=== PATIENT | female | born 1960 | race Caucasian/White ===

== ENCOUNTER 2018-05-28 22:47 | Observation (INO) | payer MEDICAID ==
[~2018-05-28] VITALS: Ht 162.6 cm; Wt 68.0 kg
[2018-05-28 23:26] LABS: Basophils # (auto) 0.1 uL; Basophils % (auto) 0.8 % (0.0-2.0); Eosinophils # (auto) 0.1 uL; Hematocrit 45.1 % (36.0-46.0); Hemoglobin 15.1 g/dL (12.2-16.2); Lymphocytes # (auto) 2.3 uL; Lymphocytes % (auto) 30.6 % (10.0-50.0); Mean Corpuscular Hgb Conc. 33.5 g/dL (32.0-36.0); Mean Corpuscular Volume 92.5 fL (80.0-100.0); Monocytes # (auto) 0.8 uL; Monocytes % (auto) 10.9 % (0.0-12.0); Neutrophils # (auto) 4.1 uL; Neutrophils % (auto) 55.7 % (37.0-80.0); Platelet Count (auto) 257 10^3/uL (140-450); Red Blood Cells 4.87 10^6/uL (4.0-5.20); Red Cell Distribution Width 14.8 % (11.8-14.3); White Blood Cell 7.4 10^3/uL (4.4-10.8)
[2018-05-28 23:44] LABS: Alanine Aminotransferase 19 U/L (13-56); Albumin 3.7 g/dL (3.4-5.0); Anion Gap 14 (5-15); Aspartate Aminotransferase 17 U/L (15-37); BUN/Creatinine Ratio 10.8; Blood Urea Nitrogen 8 mg/dL (7-18); Calcium 8.4 mg/dL (8.5-10.1); Carbon Dioxide 20 mmol/L (21-32); Chloride 105 mmol/L (98-107); GFR African American 103 mL/min; GFR Non-African American 85 mL/min; Glucose 83 mg/dL (74-106); Potassium 3.8 mmol/L (3.5-5.1); Sodium 139 mmol/L (136-145)
[2018-05-28 23:48] LABS: Alkaline Phosphatase 117 U/L (45-117); Bilirubin, Total 0.9 mg/dL (0.2-1.0); Total Protein 8.5 g/dL (6.4-8.2)
[2018-05-29 01:23] LABS: Amylase 27 U/L (25-115); Lipase 175 U/L (73-393)
[2018-05-29] MEDS ORDERED: SODIUM CHLORIDE 0.9% 1,000 ML IV ONE (04:30)
[2018-05-29 08:39] LABS: Urine Bacteria NONE SEEN /hpf (None Seen); Urine Blood TRACE /uL (Negative); Urine Hyaline Cast FEW /lpf (0 - 2); Urine Mucus FEW (None Seen); Urine Specific Gravity 1.023 (1.001-1.035); Urine WBC 7 /hpf (0 - 5)
[2018-05-29 08:53] LABS: Amphetamine Screen, Urine NEGATIVE (NEGATIVE); Barbiturate Scree,Urine NEGATIVE (NEGATIVE); Benzodiazephine Screen, Urine NEGATIVE (NEGATIVE); Cannabinoid Screen, Urine NEGATIVE (NEGATIVE); Cocaine Screen, Urine NEGATIVE (NEGATIVE); Opiate Scree,Urine NEGATIVE (NEGATIVE); Phencyclidine Screen, Urine NEGATIVE (NEGATIVE)
[2018-05-29 12:00] VITALS: BP 159/63
[2018-05-29] MEDS ORDERED: cefTRIAXone 1GM/10ml IVPUSH 10 ML IV ONE (12:30)
[2018-05-29] MEDS ORDERED: chlordiazePOXIDE HCL 25 MG CAP PO ONE (13:15)
== END 2018-05-29 14:07 | disposition home or self-care (01) | DRG 52 ==
LOC: EDBD 22:47 → ER 22:59 → OVERFLOW 23:00 → ER 05-29 14:07
PROVIDERS: ADMIT Emergency Medicine; ATTEND Emergency Medicine
DX: G92 Toxic encephalopathy (principal); I10 Essential (primary) hypertension; F10.20 Alcohol dependence, uncomplicated; F41.9 Anxiety disorder, unspecified; Z59.0 Homelessness
CPT/HCPCS: 36415; 71046; 80053; 80307; 80320; 81001; 82150; 83690; 83735; 83880; 84484; 85025; 93005; 96361; 96374; 99285; G0378; J0696

== ENCOUNTER 2018-06-13 18:52 | Emergency (ER) | payer MEDICAID ==
[~2018-06-13] VITALS: Ht 167.6 cm; Wt 74.8 kg
[2018-06-13] MEDS ORDERED: SODIUM CHLORIDE 0.9% 1,000 ML IV ONE (21:23)
[2018-06-13] MEDS ORDERED: LORazepam 2MG/ML-1ML VIAL IV ONE (21:30)
[2018-06-13 21:45] LABS: Basophils # (auto) 0 uL; Basophils % (auto) 0.8 % (0.0-2.0); Eosinophils # (auto) 0 uL; Eosinophils % (auto) 0.8 % (0.0-7.0); Hematocrit 40.7 % (36.0-46.0); Hemoglobin 13.7 g/dL (12.2-16.2); Lymphocytes # (auto) 2.1 uL; Lymphocytes % (auto) 38.4 % (10.0-50.0); Mean Corpuscular Hemoglobin 31.8 pg (28.0-32.0); Mean Corpuscular Hgb Conc. 33.8 g/dL (32.0-36.0); Mean Corpuscular Volume 94.2 fL (80.0-100.0); Monocytes # (auto) 0.7 uL; Monocytes % (auto) 12.7 % (0.0-12.0); Neutrophils # (auto) 2.6 uL; Neutrophils % (auto) 47.3 % (37.0-80.0); Platelet Count (auto) 309 10^3/uL (140-450); Red Blood Cells 4.32 10^6/uL (4.0-5.20); Red Cell Distribution Width 15.7 % (11.8-14.3); White Blood Cell 5.5 10^3/uL (4.4-10.8)
[2018-06-13 22:31] LABS: BUN/Creatinine Ratio 6.5; Bilirubin, Total 0.5 mg/dL (0.2-1.0); Calcium 8.5 mg/dL (8.5-10.1); Potassium 3.4 mmol/L (3.5-5.1); Total Protein 8.2 g/dL (6.4-8.2)
[2018-06-14 05:42] VITALS: BP 157/84
== END 2018-06-14 05:29 | disposition home or self-care (01) ==
LOC: EDBD 18:52 → ER 19:09
DX: E86.0 Dehydration (principal); F10.120 Alcohol abuse with intoxication, uncomplicated; F41.9 Anxiety disorder, unspecified; I10 Essential (primary) hypertension; F17.210 Nicotine dependence, cigarettes, uncomplicated
CPT/HCPCS: 36415; 80053; 80320; 85025; 94761; 96361; 96374; 99284; J2060; J7030

== ENCOUNTER 2019-04-24 21:05 | Emergency (ER) | payer MEDICAID ==
[~2019-04-24] VITALS: Ht 167.6 cm; Wt 68.0 kg
[2019-04-24 22:03] LABS: Basophils # (auto) 0 uL; Basophils % (auto) 0.6 % (0.0-2.0); Eosinophils # (auto) 0 uL; Eosinophils % (auto) 0.7 % (0.0-7.0); Hematocrit 44.5 % (36.0-46.0); Lymphocytes # (auto) 1.2 uL; Lymphocytes % (auto) 18.4 % (10.0-50.0); Mean Corpuscular Hgb Conc. 33.6 g/dL (32.0-36.0); Mean Corpuscular Volume 98.2 fL (80.0-100.0); Monocytes # (auto) 0.7 uL; Neutrophils # (auto) 4.5 uL; Neutrophils % (auto) 69.3 % (37.0-80.0); Platelet Count (auto) 189 10^3/uL (140-450); Red Blood Cells 4.53 10^6/uL (4.0-5.20); White Blood Cell 6.5 10^3/uL (4.4-10.8)
[2019-04-24 22:20] LABS: Alanine Aminotransferase 87 U/L (13-56); Albumin 3.9 g/dL (3.4-5.0); Anion Gap 15 (5-15); Aspartate Aminotransferase 62 U/L (15-37); Blood Urea Nitrogen 12 mg/dL (7-18); Calcium 9.3 mg/dL (8.5-10.1); Carbon Dioxide 24 mmol/L (21-32); Chloride 96 mmol/L (98-107); GFR African American 101 mL/min; GFR Non-African American 84 mL/min; Glucose 85 mg/dL (74-106); Potassium 4.2 mmol/L (3.5-5.1); Sodium 135 mmol/L (136-145)
[2019-04-24 22:23] LABS: Alkaline Phosphatase 97 U/L (45-117); Bilirubin, Total 1.8 mg/dL (0.2-1.0); Total Protein 8.5 g/dL (6.4-8.2)
[2019-04-25] MEDS ORDERED: SODIUM CHLORIDE 0.9% 1,000 ML IV ONE (01:30)
[2019-04-25] MEDS ORDERED: THIAMINE 100mg/ml INJ (200mg/2ml VIAL) IV ONE (01:30)
[2019-04-25] MEDS ORDERED: LORazepam 2MG/ML-1ML VIAL IV ONE (01:30)
[2019-04-25] MEDS ORDERED: ASPirin-EC 325mg tab PO ONE (01:30)
[2019-04-25 05:19] VITALS: BP 111/58
== END 2019-04-25 06:05 | disposition home or self-care (01) ==
LOC: EDBD 21:05 → ER 21:12
DX: R07.9 Chest pain, unspecified (principal); I10 Essential (primary) hypertension; F17.210 Nicotine dependence, cigarettes, uncomplicated
CPT/HCPCS: 36415; 71046; 80053; 83880; 84443; 84484; 85025; 93005; 96374; 96375; 99284; J2060; J3411; J7030

== ENCOUNTER 2021-02-18 20:08 | Emergency (ER) | payer MEDICAID ==
[~2021-02-18] VITALS: Ht 167.6 cm; Wt 68.0 kg
[2021-02-18] MEDS ORDERED: FOLIC ACID 1 MG, MULTIPLE VITAMIN 10 ML, MAGNESIUM SULF SDV 50% 8 MEQ, THIAMINE INJ 100... INJ STA ×5 (20:33)
[2021-02-18] MEDS ORDERED: SODIUM CHLORIDE 0.9% 1,000 ML IV ONE (20:45)
[2021-02-18] MEDS ORDERED: SODIUM CHLORIDE 0.9% 2,000 ML IV ONE (21:00)
[2021-02-18 22:15] LABS: Basophils # (auto) 0.1 10 ^3/uL (0-0.2); Eosinophils # (auto) 0.2 10 ^3/uL (0-0.8); Hemoglobin 12.8 g/dL (12.2-16.2); Monocytes # (auto) 0.9 10 ^3/uL (0-1.3)
[2021-02-18 22:17] LABS: Basophils % (auto) 0.7 % (0.0-2.0); Hematocrit 39.9 % (36.0-46.0); Lymphocytes # (auto) 2.2 10 ^3/uL (0.4-5.4); Lymphocytes % (auto) 21.1 % (10.0-50.0); Mean Corpuscular Hemoglobin 30.5 pg (28.0-32.0); Mean Corpuscular Hgb Conc. 32.1 g/dL (32.0-36.0); Mean Corpuscular Volume 94.9 fL (80.0-100.0); Monocytes % (auto) 8.4 % (0.0-12.0); Neutrophils # (auto) 7.1 10 ^3/uL (1.6-8.6); Neutrophils % (auto) 67.8 % (37.0-80.0); Nucleated Red Blood Cells % 0.1 %; Red Cell Distribution Width 19.9 % (11.8-14.3); White Blood Cell 10.5 10^3/uL (4.4-10.8)
[2021-02-18 22:33] LABS: Albumin 2.8 g/dL (3.4-5.0); Anion Gap 6 (5-15); BUN/Creatinine Ratio 11.3; Blood Urea Nitrogen 6 mg/dL (7-18); Calcium 8.3 mg/dL (8.5-10.1); Carbon Dioxide 27 mmol/L (21-32); Chloride 109 mmol/L (98-107); GFR African American 151 mL/min; GFR Non-African American 125 mL/min; Glucose 83 mg/dL (74-106); Magnesium 2.4 mg/dL (1.6-2.6); Potassium 3.4 mmol/L (3.5-5.1); Sodium 142 mmol/L (136-145)
[2021-02-18 22:38] LABS: Alanine Aminotransferase 37 U/L (13-56); Alkaline Phosphatase 90 U/L (45-117); Aspartate Aminotransferase 36 U/L (15-37); Bilirubin, Total 0.2 mg/dL (0.2-1.0); INR 1.01 (0.9-1.15); Partial Thromboplastin Time 26.2 sec (23.0-31.2); Total Protein 6.8 g/dL (6.4-8.2)
[2021-02-19 02:19] LABS: Amphetamine Screen, Urine POSITIVE (NEGATIVE); Barbiturate Scree,Urine NEGATIVE (NEGATIVE); Benzodiazephine Screen, Urine NEGATIVE (NEGATIVE); Cannabinoid Screen, Urine NEGATIVE (NEGATIVE); Cocaine Screen, Urine NEGATIVE (NEGATIVE); Opiate Scree,Urine NEGATIVE (NEGATIVE); Phencyclidine Screen, Urine NEGATIVE (NEGATIVE)
[2021-02-19 06:58] VITALS: BP 137/89
== END 2021-02-19 07:00 | disposition home or self-care (01) ==
LOC: ER 20:08 → EDBD 20:08 → ER 02-19 07:00
DX: R06.02 Shortness of breath (principal); F10.129 Alcohol abuse with intoxication, unspecified; I10 Essential (primary) hypertension; F17.210 Nicotine dependence, cigarettes, uncomplicated; Z59.0 Homelessness; Y90.6 Blood alcohol level of 120-199 mg/100 ml
CPT/HCPCS: 36415; 71045; 80053; 80307; 80320; 83735; 83880; 84484; 85025; 85610; 85730; 93005; 96365; 96366; 99285; J3411; J3475; J7030

== ENCOUNTER 2021-02-19 07:15 | Emergency (ER) | payer MEDICAID ==
[~2021-02-19] VITALS: Ht 167.6 cm; Wt 68.0 kg
[2021-02-19 07:20] VITALS: BP 150/84
[2021-02-19] MEDS ORDERED: IBUPROFEN 600 MG TAB PO ONE ×2 (20:59→21:15)
== END 2021-02-19 09:28 | disposition home or self-care (01) ==
LOC: ER 07:15
DX: S80.212A Abrasion, left knee, initial encounter (principal); S80.211A Abrasion, right knee, initial encounter; I10 Essential (primary) hypertension; F17.210 Nicotine dependence, cigarettes, uncomplicated; W18.39XA Other fall on same level, initial encounter; Y93.89 Activity, other specified; Y92.89 Other specified places as the place of occurrence of the external cause; Y99.8 Other external cause status

== ENCOUNTER 2025-09-02 13:42 | Inpatient (IN) | payer MEDICARE, MEDICAID ==
[~2025-09-02] VITALS: Ht 170.2 cm; Wt 75.0 kg
--- NOTE | 2025-09-02 14:12 | ED.PDOC ---
SOB-HPI HPI Comments This is a 65 year old female MOY presenting to the ED with chief complaint of SOB. EMS reports that they were called out due to patient being without her O2 at her care facility and having a low O2 saturation. EMS relays that the patient's O2 saturation was 96% when placed back on her O2. Patient states she has no complaints at this time, only knowing she was told her O2 level was low. Patient denies any N/V, chest pain, dizziness, fever, or chills. 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 DESIGNER History Family History Family History: Reviewed,noncontributory to illness, Unknown Social History Smoker: Non-Smoker Alcohol: Denies ETOH Use Drugs: Denies Drug Use Lives In: Assisted Care, Detention Constitutional: denies: chills, diaphoresis, fatigue, fever, malaise, sweats, weakness, others EENTM: denies: blurred vision, double vision, ear bleeding, ear discharge, ear drainage, ear pain, ear ringing, eye pain, eye redness, hearing loss, mouth pain, mouth swelling, nasal discharge, nose bleeding, nose congestion, nose pain, photophobia, tearing, throat pain, throat swelling, voice changes, others Respiratory: denies: cough, hemoptysis, orthopnea, SOB at rest, shortness of breath, SOB with excertion, stridor, wheezing, others Cardiovascular: denies: chest pain, dizzy spells, diaphoresis, Dyspnea on exertion, edema, irregular heart beat, left arm pain, lightheadedness, palpitations, PND, syncope, others Gastrointestinal: denies: abdomen distended, abdominal pain, blood streaked bowels, constipated, diarrhea, dysphagia, difficulty swallowing, hematemesis, melena, nausea, poor appetite, poor fluid intake, rectal bleeding, rectal pain, vomiting, others Genitourinary: denies: abnormal vagina bleeding, burning, dyspareunia, dysuria, flank pain, frequency, hematuria, incontinence, pain, , vagina discharge, urgency, others Neurological: denies: dizziness, fainting, headache, left sided numbness, left sided weakness, numbness, paresthesia, pre-existing deficit, right sided numbness, right sided weakness, seizure, speech problems, tingling, tremors, weakness, others Musculoskeletal: denies: back pain, gout, joint pain, joint swelling, muscle pain, muscle stiffness, neck pain, others Integumetry: denies: bruises, change in color, change in hair/nails, dryness, laceration, lesions, lumps, rash, wounds, others Allergic/Immunocompromised: denies: Difficulty Healing, Frequent Infections, Hives, Itching, others Hematologic/Lymphatic: denies: anemia, blood clots, easy bleeding, easy bruising, swollen glands, others Endocrine: denies: excessive hunger, excessive sweating, excessive thirst, excessive urination, flushing, intolerance to cold, intolerance to heat, unexplained weight gain, unexplained weight loss, others Psychiatric: denies: anxiety, bipolar disorder, depression, hopeless, panic disorder, schizophrenia, sleepless, suicidal, others All Other Systems: Reviewed and Negative Physical Exam General Appearance: No Apparent Distress, Normal HEENT: Normal ENT Inspection, Pharynx Normal, TMs Normal Neck: Full Range of Motion, Non-Tender, Normal, Normal Inspection Respiratory: Chest Non-Tender, Lungs Clear, No Accessory Muscle Use, No Respiratory Distress, Normal Breath Sounds Cardiovascular: No Edema, No JVD, No Murmur, No Gallop, Normal Peripheral Pulses, Regular Rate/Rhythm Breast Exam: Deferred Gastrointestinal: No Organomegaly, Non Tender, No Pulsatile Mass, Normal Bowel Sounds, Soft Genitalia: Deferred Pelvic: Deferred Rectal: Deferred Extremities: No calf tenderness, Normal capillary refill, Normal inspection, Normal range of motion, Non-tender, No pedal edema Musculoskeletal : Apperance: Normal Neurologic: Alert, it security consultant II-XII nml as Tested, No Motor Deficits, Normal Affect, Normal Mood, No Sensory Deficits Cerebellar Function: Normal Reflexes: Normal Skin: Dry, Normal Color, Warm Lymphatic: No Adenopathy Was a procedure done? Was a procedure done?: No Differential Dx Differential Diagnosis: CHF, COPD, Pneumonia X-Ray, Labs, Meds, VS Vital Signs Date Time Temp Pulse Resp B/P (MAP) Pulse Ox O2 Delivery O2 Flow Rate FiO2 09/02/25 13:47 97.3 121 20 108/68 100 97.3 09/02/25 13:44 118 Lab Test 09/02/25 14:50 09/02/25 13:55 Range/Units Troponin I High Sensitivity < 3 L < 3 L </=34 ng/L White Blood Count 4.6 4.4-10.8 10^3/uL Red Blood Count 4.69 4.0-5.20 10^6/uL Hemoglobin 13.4 12.2-16.2 g/dL Hematocrit 40.4 36.0-46.0 % Mean Corpuscular Volume 86.0 80.0-100.0 fL Mean Corpuscular Hemoglobin 28.6 28.0-32.0 pg Mean Corpuscular Hemoglobin Concent 33.2 32.0-36.0 g/dL Red Cell Distribution Width 14.2 11.8-14.3 % Platelet Count 167 140-450 10^3/uL Mean Platelet Volume 7.5 6.9-10.8 fL Neutrophils (%) (Auto) 55.3 37.0-80.0 % Lymphocytes (%) (Auto) 27.0 10.0-50.0 % Monocytes (%) (Auto) 15.3 H 0.0-12.0 % Eosinophils (%) (Auto) 1.8 0.0-7.0 % Basophils (%) (Auto) 0.6 0.0-2.0 % Neutrophils # (Auto) 2.5 1.6-8.6 10 ^3/uL Lymphocytes # (Auto) 1.2 0.4-5.4 10 ^3/uL Monocytes # (Auto) 0.7 0-1.3 10 ^3/uL Eosinophils # (Auto) 0.1 0-0.8 10 ^3/uL Basophils # (Auto) 0 0-0.2 10 ^3/uL Nucleated Red Blood Cells 0.1 % Prothrombin Time 10.7 9.3-11.8 sec Prothrombin Time INR 1.01 0.9-1.15 Activated Partial Thromboplast Time 29.9 24.5-34.5 SEC Sodium Level 139 136-145 mmol/L Potassium Level 3.9 3.5-5.1 mmol/L Chloride Level 98 98-107 mmol/L Carbon Dioxide Level 31 20-31 mmol/L Anion Gap 10 5-15 Blood Urea Nitrogen 9 9-23 mg/dL Creatinine 0.61 0.550-1.02 mg/dL Glomerular Filtration Rate Calc 99 >90 mL/min BUN/Creatinine Ratio 14.8 10.0-20.0 Serum Glucose 106 74-106 mg/dL Hemoglobin A1c 5.2 <5.7 % A1C Calcium Level 9.6 8.7-10.4 mg/dL Phosphorus Level 3.4 2.4-5.1 mg/dL Magnesium Level 1.8 1.6-2.6 mg/dL B-Type Natriuretic Peptide 30.10 0-100 pg/mL Triglycerides Level 170 H < 150 mg/dL Cholesterol Level 221 H < 200 mg/dL LDL Cholesterol 150 H < 100 mg/dL HDL Cholesterol 52 40-59 mg/dL Vitamin B12 Level 1449 H 211-911 pg/mL Vitamin D 25-Hydroxy 24.0 L 30.0-100 ng/mL Thyroid Stimulating Hormone (TSH) 2.55 0.55-4.78 uIU/mL [place] [id number] Ph: [phone] DIAGNOSTIC IMAGING Diagnostic Imaging Report : [id number] Signed PATIENT: DIONNA FENG ACCT: [id number] UNIT: [id number] : 1960 LOC: ER ROOM / BED: / AGE / SEX: 65 / F ADM STATUS: REG ER SERVICE 1357 ORDERING PHYSICIAN: ARIC BRODY MD PROCEDURE(s): CXRP - CHEST PORTABLE REASON: sob ORDER NUMBER(s): [id number], ACCESSION NUMBER(s): [id number] CHEST RADIOGRAPH Indication: sob Technique: Single frontal view of the chest was obtained. Comparison: CT ANGIO CHEST - PULMONARY on DOS: 07/27/23 Findings: Mild pulmonary vascular congestion. No significant pleural effusion. No pneumoth orax. Stable cardiomediastinal silhouette. IMPRESSION: Mild pulmonary vascular congestion. ATED BY: NAVJOT CHAPMAN MD DICTATED DATE/TIME: 09/02/251425 SIGNED BY: NAVJOT CHAPMAN MD SIGNED DATE/TIME: 09/02/251425 CC: Images Reviewed?: Images reviewed and evaluated by me Time of 1ST Reevaluation: 15:01 Reevaluation 1ST: Unchanged Patient Education/Counseling: Diagnosis, Treatment Family Education/Counseling: No Family Present SEPSIS Sepsis Screen Physician Orders Chest Portable (09/02/25 13:57) Electrocardigram (09/02/25 13:44) Electrocardigram (09/02/25 14:44) Electrocardigram (09/02/25 16:44) Vital Signs Date Time Temp Pulse Resp B/P (MAP) Pulse Ox O2 Delivery O2 Flow Rate FiO2 09/02/25 13:47 97.3 121 20 108/68 100 97.3 09/02/25 13:44 118 Laboratory Tests Test 09/02/25 13:55 White Blood Count 4.6 10^3/uL (4.4-10.8) Departure 1 Departure Time of Disposition: 13:07 (Patient presents with acute on chronic respiratory failure. Patient also had likely have pneumonia. We will admit patient for further workup and expert consultation) Impression: Primary Impression: Acute and chronic respiratory failure Additional Impressions: Pneumonia Shortness of breath Disposition: ADMITTED INPATIENT Admit to: Med Surg Condition: Guarded Critical Care Note Critical Care Time?: Yes Critical care comment: Acute on chronic respiratory failure Authorized and Performed by: Aric Brody MD Total critical care time: Approximately 36 minutes Due to a high probability of clinically significant, life threatening deterioration, the patient required my highest level of preparedness to interven e emergently and I personally spent this critical care time directly and personally managing the patient. This critical care time included obtaining a history; examining the patient; pulse oximetry; ordering and review of studies; arranging urgent treatment with development of a management plan; evaluation of patient's response to treatment; frequent reassessment; and, discussions with other providers. This critical care time was performed to assess and manage the high probability of imminent, life-threatening deterioration that could result in multi-organ failure. It was exclusive of separately billable procedures and treating other patients and teaching time. Please see my other sections and the rest of the note for further information on patient assessment and treatment. Stability Stability form required: No Heart Score Heart Score: Heart Score Response (Comments) Value History N/A 0 EKG N/A 0 Age N/A 0 Risk Factors N/A 0 Troponin N/A 0 Total 0 I personally scribed for ARIC BRODY MD ([email or web address]) on 09/02/25 at 14:12. Elect ronically submitted by Conrad James ([email or web address]). I personally scribed for ARIC BRODY MD ([email or web address]) on 09/02/25 at 14:59. Elec tronically submitted by Conrad James ([email or web address]). ARIC BROYD MD Sep 02, 2025 14:12
[2025-09-02 14:14] LABS: Hematocrit 40.4 % (36.0-46.0); Hemoglobin 13.4 g/dL (12.2-16.2); Mean Corpuscular Hemoglobin 28.6 pg (28.0-32.0); Mean Corpuscular Volume 86.0 fL (80.0-100.0); Nucleated Red Blood Cells % 0.1 %
[2025-09-02 14:17] LABS: Potassium 3.9 mmol/L (3.5-5.1); Sodium 139 mmol/L (136-145)
[2025-09-02 14:18] LABS: Anion Gap 10 (5-15); Calcium 9.6 mg/dL (8.7-10.4)
[2025-09-02 14:19] LABS: Carbon Dioxide 31 mmol/L (20-31); Chloride 98 mmol/L (98-107)
[2025-09-02 14:23] LABS: BUN/Creatinine Ratio 14.8 (10.0-20.0); Blood Urea Nitrogen 9 mg/dL (9-23)
--- NOTE | 2025-09-02 14:29 | DVH ---
CHEST RADIOGRAPH Indication: sob Technique: Single frontal view of the chest was obtained. Comparison: CT ANGIO CHEST - PULMONARY on DOS: 07/27/23 Findings: Mild pulmonary vascular congestion. No significant pleural effusion. No pneumothorax. Stable cardiomediastinal silhouette. IMPRESSION: Mild pulmonary vascular congestion.
[2025-09-02 14:38] LABS: Glucose 106 mg/dL (74-106)
[2025-09-02] MEDS: methylPREDNISolone SOD SUCC 40 MG/ML VL IV ONE (15:45)
[2025-09-02] MEDS ORDERED: ONDANSETRON HCL 4 MG/2 ML VIAL IV PRN (15:45)
[2025-09-02 17:00] LABS: Magnesium 1.8 mg/dL (1.6-2.6)
[2025-09-02 17:01] LABS: HDL Cholesterol 52.0 mg/dL (40-59)
[2025-09-02 17:05] LABS: Cholesterol 221.0 mg/dL (< 200); INR 1.01 (0.9-1.15); Partial Thromboplastin Time 29.9 SEC (24.5-34.5); Prothrombin Time 10.7 sec (9.3-11.8); Triglycerides 170.0 mg/dL (< 150)
--- NOTE | 2025-09-02 17:28 | DVHHPRES ---
History of Present Illness Resident Creating Document: RAMIRO LAMAS RESIDENT History of Present Illness Mariana Jimenez is a 65-year-old female patient who presents to ED with chief complaint of desaturation. Per patient she does not use home oxygen. She was completely asymptomatic. She lives in an assisted living facility, or after of again seeing desaturation, caregivers called EMS who indicated oxygen therapy with nasal cannula and bring her to the emergency department. Patient denies any symptoms. Past medical history: Hypertension, COPD with no home oxygen requirement, bed- bound due to generalized weakness/failure to thrive Surgical history: Bilateral ankle surgery Family history: Intestinal cancer and grandmother and mother Social history: Lives in [place] in assisted living facility (next of kin is friend Karen). Ex tobacco abuse (40 pack-year history of smoking) quit approximately four years ago. Ex ethanol abuse (one pt of vodka daily) quit two years ago. Ex cocaine abuse quit over 20 years ago. Denies current tobacco, alcohol and other drug abuse. Allergies: Pollen and dust. Denies medication allergy. Home medication: Does not recall. Patient seen and examined at bedside. Currently has no new complaints. Patient was admitted for further evaluation. Past Medical History Per HPI Past Surgical History Per HPI Family History Per HPI Past Social History Per HPI Review of Systems Review of Systems Per HPI Allergies: Coded Allergies: NO KNOWN ALLERGIES (Unverified , 05/28/18) Medications Current Medications Medications Dose Ordered Sig/Ji Route Start Time Stop Time Status Last Admin Dose Admin Acetaminophen 325 mg Q4HP PRN PO 09/02/25 15:45 Ondansetron HCl 4 mg Q4HP PRN IV 09/02/25 15:45 Morphine Sulfate 2 mg Q4HPRN PRN IV 09/02/25 15:45 Enoxaparin Sodium 40 mg DAILY SC 09/03/25 10:00 Furosemide 20 mg BIDD IV 09/02/25 18:00 Ipratropium [place] 0.5 mg Q6HWA [facility] 09/02/25 18:00 Levalbuterol HCl 0.625 mg Q6HR [facility] 09/02/25 18:00 Methylprednisolone Sodium Succinate 40 mg BID IV 09/02/25 22:00 Azithromycin 250 ml @ 125 mls/hr DAILY IV 09/03/25 10:00 Exam Vital Signs Vital Signs Date Time Temp Pulse Resp B/P (MAP) Pulse Ox O2 Delivery O2 Flow Rate FiO2 09/02/25 13:47 97.3 121 20 108/68 100 97.3 Exam Patient lying in bed, in no acute distress General: Lucid, afebrile, mucosae are moist Cardiovascular: Normal S1 and S2. No murmurs, gallops or rubs Respiratory: Normal ventilation mechanics. Clear lung sounds on auscultation. On nasal cannula 2 L/min. Abdomen: Soft, nontender, no organomegaly, normal bowel sounds MSK/skin: Mobilizes 4 limbs. Skin is dry and warm Neurological: Oriented in 3 spheres. No motor no sensitive deficits. Pupils are isocoric and reactive Labs/Xrays Labs Test 09/02/25 16:49 09/02/25 13:55 Range/Units Troponin I High Sensitivity < 3 L </=34 ng/L White Blood Count 4.6 4.4-10.8 10^3/uL Red Blood Count 4.69 4.0-5.20 10^6/uL Hemoglobin 13.4 12.2-16.2 g/dL Hematocrit 40.4 36.0-46.0 % Mean Corpuscular Volume 86.0 80.0-100.0 fL Mean Corpuscular Hemoglobin 28.6 28.0-32.0 pg Mean Corpuscular Hemoglobin Concent 33.2 32.0-36.0 g/dL Red Cell Distribution Width 14.2 11.8-14.3 % Platelet Count 167 140-450 10^3/uL Mean Platelet Volume 7.5 6.9-10.8 fL Neutrophils (%) (Auto) 55.3 37.0-80.0 % Lymphocytes (%) (Auto) 27.0 10.0-50.0 % Monocytes (%) (Auto) 15.3 H 0.0-12.0 % Eosinophils (%) (Auto) 1.8 0.0-7.0 % Basophils (%) (Auto) 0.6 0.0-2.0 % Neutrophils # (Auto) 2.5 1.6-8.6 10 ^3/uL Lymphocytes # (Auto) 1.2 0.4-5.4 10 ^3/uL Monocytes # (Auto) 0.7 0-1.3 10 ^3/uL Eosinophils # (Auto) 0.1 0-0.8 10 ^3/uL Basophils # (Auto) 0 0-0.2 10 ^3/uL Nucleated Red Blood Cells 0.1 % Prothrombin Time 10.7 9.3-11.8 sec Prothrombin Time INR 1.01 0.9-1.15 Activated Partial Thromboplast Time 29.9 24.5-34.5 SEC Sodium Level 139 136-145 mmol/L Potassium Level 3.9 3.5-5.1 mmol/L Chloride Level 98 98-107 mmol/L Carbon Dioxide Level 31 20-31 mmol/L Anion Gap 10 5-15 Blood Urea Nitrogen 9 9-23 mg/dL Creatinine 0.61 0.550-1.02 mg/dL Glomerular Filtration Rate Calc 99 >90 mL/min BUN/Creatinine Ratio 14.8 10.0-20.0 Serum Glucose 106 74-106 mg/dL Hemoglobin A1c 5.2 <5.7 % A1C Calcium Level 9.6 8.7-10.4 mg/dL Phosphorus Level 3.4 2.4-5.1 mg/dL Magnesium Level 1.8 1.6-2.6 mg/dL B-Type Natriuretic Peptide 30.10 0-100 pg/mL Triglycerides Level 170 H < 150 mg/dL Cholesterol Level 221 H < 200 mg/dL LDL Cholesterol 150 H < 100 mg/dL HDL Cholesterol 52 40-59 mg/dL Vitamin B12 Level 1449 H 211-911 pg/mL Thyroid Stimulating Hormone (TSH) 2.55 0.55-4.78 uIU/mL SEPSIS Sepsis Screen Date sepsis recognized/suspect: Sep 02, 2025 Time Sepsis recognized/suspect: 1347 Recent Procedure: No On Antibiotic Therapy: No Respiratory Rate >20: No Heart Rate >90: Yes Temp<36 C (96.8 F) or >38.3 C: No SBP <90 or MAP <65 mmHG: No New Acute Mental Status Change: No Is the patient on CPAP, BIPAP,: No Physician Orders Chest Portable (09/02/25 13:57) Electrocardigram (09/02/25 13:44) Electrocardigram (09/02/25 14:44) Electrocardigram (09/02/25 16:44) Admit (09/02/25 15:35) Code Status (09/02/25 15:35) Acetaminophen Tablet (Tylenol Tablet) (09/02/25 15:45) Ondansetron Hcl (Zofran) (09/02/25 15:45) Complete Blood Count (09/03/25 04:00) Comprehensive Metabolic Panel (09/03/25 04:00) Cardiac Diet-2gna,Lofat,Lochol (09/02/25 Dinner) Echo 2d Mode Cardiac Dop (09/02/25 15:35) Morphine Sulfate Injection (09/02/25 15:45) Enoxaparin Sodium (Lovenox) (09/03/25 10:00) Oxygen By Nasal Cannula (09/02/25 15:35) Stat Ekg For Chest Pain (09/02/25 15:35) Notify Md Of Changes From Base (09/02/25 15:35) Bicycle Mechanic For 24 Hours (09/02/25 15:35) Emergency Dysrhythmia Protocol (09/02/25 15:35) Rhythm Strips Once Every Shift (09/02/25 15:35) Vitamin D, 25-Hydroxy (09/02/25 15:35) Urinalysis (09/02/25 15:35) Drug Screen (09/02/25 15:35) Furosemide Injection (Lasix Injection) (09/02/25 18:00) Ipratropium Medneb (Atrovent Medneb) (09/02/25 18:00) Levalbuterol Hcl (Xopenex Medneb) (09/02/25 18:00) Mrsa Screen (09/02/25 15:44) Covid19 Antigen Oxana (09/02/25 ) Rapid Influenza A&B (09/02/25 15:44) Respiratory Culture W/ Gs (09/02/25 15:45) Methylprednisolone Sod Succ (Solu Medrol (09/02/25 22:00) Azithromycin 500mg/ 250ml (Zithromax 50 (09/03/25 10:00) Azithromycin 500mg/ 250ml (Zithromax 50 (09/02/25 15:45) Vital Signs Date Time Temp Pulse Resp B/P (MAP) Pulse Ox O2 Delivery O2 Flow Rate FiO2 09/02/25 13:47 97.3 121 20 108/68 100 97.3 09/02/25 13:44 118 Laboratory Tests Test 09/02/25 13:55 White Blood Count 4.6 10^3/uL (4.4-10.8) Assessment/Plan Assessment/Plan ASSESSMENT Acute respiratory failure COPD exacerbation Community-acquired pneumonia Gram-positive/Gram-negative Hypertension Partially bed-bound Failure to thrive History of polysubstance abuse Vitamin-D deficiency Only diagnosed dyslipidemia PLAN Patient admitted to telemetry Currently on oxygen therapy with nasal cannula 2 L Under empiric IV antibiotic (azithromycin and ceftriaxone) Continue with oxygen therapy, bronchodilators, IV steroids and IV antibiotics. Ordered EKG Troponin x3 negative Goals of care discussed with patient for over 18 minutes: Full code status Discussed plan with Dr. Salmon, patient and nurses: Admitted to telemetry. Currently on oxygen therapy, bronchodilators, IV steroids and IV antibiotic. Patient has poor prognosis. Plan discussed with: Patient, Other (Nurses) My Orders Orders - RAMIRO LAMAS RESIDENT Procedure Category Date Status Time Admit ADMIT 09/02/25 Transmitted 15:35 Code Status CODE 09/02/25 Transmitted 15:35 Acetaminophen Tablet PHA 09/02/25 In Process (Tylenol Tablet) 15:45 Ondansetron Hcl PHA 09/02/25 In Process (Zofran) 15:45 Complete Blood Count LAB 09/03/25 Verified 04:00 Comprehensive LAB 09/03/25 Verified Metabolic Panel 04:00 Cardiac DIET 09/02/25 Transmitted Diet-2gna,Lofat,Lochol Dinner Echo 2d Mode Cardiac US 09/02/25 Logged DOP 15:35 Morphine Sulfate PHA 09/02/25 In Process Injection 15:45 Enoxaparin Sodium PHA 09/03/25 In Process (Lovenox) 10:00 Oxygen By Nasal RT 09/02/25 Transmitted Cannula 15:35 Stat Ekg For Chest DAYANA 09/02/25 In Process Pain 15:35 Notify Of Changes DAYANA 09/02/25 In Process From Base 15:35 Bicycle Mechanic For DAYANA 09/02/25 In Process 24 Hours 15:35 Emergency Dysrhythmia DAYANA 09/02/25 In Process Protocol 15:35 Rhythm Strips Once DAYANA 09/02/25 In Process Every Shift 15:35 Vitamin D, 25-Hydroxy LAB 09/02/25 In Process 15:35 Urinalysis LAB 09/02/25 Logged 15:35 Drug Screen LAB 09/02/25 Logged 15:35 Furosemide Injection PHA 09/02/25 In Process (Lasix Injection) 18:00 Ipratropium Medneb PHA 09/02/25 In Process (Atrovent Medneb) 18:00 Levalbuterol Hcl PHA 09/02/25 In Process (Xopenex Medneb) 18:00 Mrsa Screen ADEN 09/02/25 Logged 15:44 Covid19 Antigen Oxana LAB 09/02/25 Logged Rapid Influenza A&B LAB 09/02/25 Logged 15:44 Respiratory Culture ADEN 09/02/25 Logged W/ Gs 15:45 Methylprednisolone PHA 09/02/25 In Process Sod Succ (Solu Medrol 22:00 Azithromycin 500mg/ PHA 09/03/25 In Process 250ml (Zithromax 50 10:00 Azithromycin 500mg/ PHA 09/02/25 In Process 250ml (Zithromax 50 15:45 Date of Service: Sep 02, 2025 Billing Provider: FORREST SALMON MD Common Visit Codes: 10595-IWMYXSA INP/OBS CARE (HIGH) Secondary Visit Codes: 28892-[id number] CARE PLAN 30 MINUTES RAMIRO LAMAS RESIDENT Sep 02, 2025 17:28
[2025-09-02] MEDS: IPRATROPIUM BROM 0.5 MG/2.5ML INH SOL NEB SCH (17:52)
[2025-09-02 17:53] VITALS: BP 108/68; PULSE 100; RESP 16; TEMP 97.3; O2SAT 96
[2025-09-02] MEDS: LEVALBUTEROL HCL 1.25 MG/3 ML NEB NEB SCH (17:53)
[2025-09-02] MEDS ORDERED: FUROSEMIDE 20 MG/2 ML VIAL IV SCH (18:00)
[2025-09-02] MEDS: FUROSEMIDE 20 MG/2 ML VIAL IV ONE (20:23)
[2025-09-02 22:43] LABS: COVID19 ANTIGEN SOFIA FIA NEGATIVE (NEGATIVE)
[2025-09-03] VITALS (15 sets, daily range): BP systolic 106–125; BP diastolic 80–89; PULSE 79–150; RESP 14–20; TEMP 98.5–98.7; O2SAT 93–100
[2025-09-03] MEDS: methylPREDNISolone SOD SUCC 40 MG/ML VL IV SCH (01:14)
[2025-09-03] MEDS: ATORVASTATIN 20 MG TAB PO ONE (01:15)
[2025-09-03] MEDS: AZITHROMYCIN 500MG/250ML 250 ML IV ONE (01:36)
--- NOTE | 2025-09-03 06:49 | ECG ---
[facility] Test Date: 2025-09-02 Test Time: 13:44:02 Pat Name: DIONNA FENG Department: ED Room: [address] [place] [address] A Gender: F Tram Inspector: : 1960 Requested By: ARIC BRODY Order Number: [id number] Reading MD: Anish Woody Measurements Intervals [place] Rate: 118 P: 48 PA: 124 QRS: -42 QRSD: 69 T: 43 QT: 341 QTc: 478 Interpretive Statements Sinus tachycardia Left axis deviation Borderline low voltage, extremity leads RSR' in V1 or V2, right VCD or RVH Electronically Signed On 09-03-2025 11:43:27 PST by Anish Woody Please click the below link to view image of tracing.
[2025-09-03 07:11] LABS: Hematocrit 41.9 % (36.0-46.0); Hemoglobin 14.3 g/dL (12.2-16.2); Mean Corpuscular Hemoglobin 29.1 pg (28.0-32.0); Mean Corpuscular Volume 85.4 fL (80.0-100.0); Nucleated Red Blood Cells % 0.2 %
[2025-09-03 07:26] LABS: Albumin 4.2 g/dL (3.2-4.8); Alkaline Phosphatase 58 U/L (46-116); Anion Gap 9 (5-15); BUN/Creatinine Ratio 14.5 (10.0-20.0); Calcium 9.7 mg/dL (8.7-10.4); Chloride 99 mmol/L (98-107); Potassium 4.3 mmol/L (3.5-5.1); Sodium 139 mmol/L (136-145); Total Protein 7.9 g/dL (5.7-8.2)
[2025-09-03 07:28] LABS: Alanine Aminotransferase < 9 U/L (7-40); Bilirubin, Total 0.3 mg/dL (0.2-1.0); Blood Urea Nitrogen 8 mg/dL (9-23); Carbon Dioxide 31 mmol/L (20-31); Glucose 144 mg/dL (74-106)
[2025-09-03] MEDS ORDERED: methylPREDNISolone SOD SUCC 40 MG/ML VL IV SCH (10:00)
--- NOTE | 2025-09-03 11:56 | DVH ---
US BiLat Lower DVT HISTORY: DVT COMPARISON: None TECHNIQUE: Duplex doppler evaluation of the deep venous system of the lower extremity from the common femoral veins, superficial femoral vein, great saphenous vein, deep femoral vein, popliteal vein, and calf veins, including color doppler and spectral/pulsed waveform analysis, was performed. FINDINGS: Right: - Common femoral vein: Compressible - Deep femoral vein: Compressible - Femoral vein: Compressible - Popliteal vein: Compressible - Other: Nothing Left: - Common femoral vein: Compressible - Deep femoral vein: Compressible - Femoral vein: Compressible - Popliteal vein: Compressible - Other: Nothing IMPRESSION: No right or left lower extremity deep venous thrombosis.
[2025-09-03] MEDS: ERGOCALCIFEROL 50,000 UNIT(1.25MG) CAP PO SCH (12:16)
[2025-09-03] MEDS: ENOXAPARIN SOD 40 MG/0.4 ML SYRINGE SC SCH (12:17)
[2025-09-03] MEDS: AZITHROMYCIN 500MG/250ML 250 ML IV SCH (12:17)
--- NOTE | 2025-09-03 19:00 | DVHSR ---
APPROVED REPORT EXAM: Two-dimensional and M-mode echocardiogram with Doppler and color Doppler. Blood Pressure: 135/180 mmHg RISK FACTORS Height: 68, Weight: 180 DIMENSIONS LVDd (3.8-5.7cm) LA (2D) 2.8 (1.9-4.0cm) Aortic Root (2.0-3.7cm) EF (%) 55.0 (55-70%) Rt. Atrium 2.5 (1.9-4.0cm) Asc. Aorta cm Mitral Valve Mitral Mitral Stenosis E wave 0.68m/s MV Mean GR. mmHg A wave 1.19m/s MV Peak GR. mmHg E/A ratio 0.6 2D MVA cm2 DECEL Time 146ms PRESS 1/2 Time ms Aortic Valve Aortic Valve Aortic Stenosis V1 1.24m/s AO Mean GR. 5mmHg V2 1.35m/s AO Peak GR. 7mmHg LVOT Diameter 1.7 (1.8-2.4cm) Doppler KIANA 2.08cm2 Tricuspid Valve TR Velocity 2.01m/s RVSP 19mmHg Other Information Technically limited study due to body habitus. pt altered Conclusion Sinus rhythm. Normal chamber sizes. Valves are normal. EF of 60% with normal RV function. Dopplers unremarkable. No pericardial effusion masses or vegetations.
--- NOTE | 2025-09-03 19:51 | DVHPNRES ---
Progress Note Date Seen: Sep 03, 2025 Resident Creating Document: GRACY COATS RESIDENT Medical Necessity Reason Pt with a Central, PICC or Fol: No Subjective Review of Systems Mariana Jimenez is a 65-year-old female patient who presents to ED with chief complaint of desaturation. Per patient she does not use home oxygen. She was completely asymptomatic. She lives in an assisted living facility, or after of again seeing desaturation, caregivers called EMS who indicated oxygen therapy with nasal cannula and bring her to the emergency department. Patient denies any symptoms. Past medical history: Hypertension, COPD with no home oxygen requirement, bed- bound due to generalized weakness/failure to thrive Surgical history: Bilateral ankle surgery Family history: Intestinal cancer and grandmother and mother Social history: Lives in [place] in assisted living facility (next of kin is friend Karen). Ex tobacco abuse (40 pack-year history of smoking) quit approximately four years ago. Ex ethanol abuse (one pt of vodka daily) quit two years ago. Ex cocaine abuse quit over 20 years ago. Denies current tobacco, alcohol and other drug abuse. Allergies: Pollen and dust. Denies medication allergy. Home medication: Does not recall. Objective vital signs Vital Sign Date Time Temp Pulse Resp B/P (MAP) Pulse Ox O2 Delivery O2 Flow Rate FiO2 09/03/25 19:05 124 16 98 09/03/25 18:58 Nasal Cannula* 2 28 09/03/25 18:40 98.7 125/89 (101) 98.7 Total Intake and Output 09/02/25 09/02/25 09/03/25 15:00 23:00 07:00 Intake Total 350 ml Balance 350 ml medications Current Medications Medications Dose Ordered Sig/Ji Route Start Time Stop Time Status Last Admin Dose Admin Acetaminophen 325 mg Q4HP PRN PO 09/02/25 15:45 Ondansetron HCl 4 mg Q4HP PRN IV 09/02/25 15:45 Morphine Sulfate 2 mg Q4HPRN PRN IV 09/02/25 15:45 Enoxaparin Sodium 40 mg DAILY SC 09/03/25 10:00 09/03/25 12:17 40 MG Ipratropium [place] 0.5 mg Q6HWA NEB 09/02/25 18:00 09/03/25 18:58 0.5 MG Levalbuterol HCl 0.625 mg Q6HR NEB 09/02/25 18:00 09/03/25 18:58 0.625 MG Azithromycin 250 ml @ 125 mls/hr DAILY IV 09/03/25 10:00 09/03/25 12:17 125 MLS/HR Ergocalciferol 50,000 unit Q7D PO 09/03/25 10:00 09/03/25 12:16 50,000 UNIT Atorvastatin Calcium 40 mg HS PO 09/03/25 22:00 Examination Patient lying in bed, in no acute distress General: Lucid, afebrile, mucosae are moist Cardiovascular: Normal S1 and S2. No murmurs, gallops or rubs Respiratory: Normal ventilation mechanics. Clear lung sounds on auscultation. On nasal cannula 2 L/min. Abdomen: Soft, nontender, no organomegaly, normal bowel sounds MSK/skin: Mobilizes 4 limbs. Skin is dry and warm Neurological: Oriented in 3 spheres. No motor no sensitive deficits. Pupils are isocoric and reactive laboratory and microbiology Laboratory Tests 09/03/25 06:56 Test 09/03/25 06:56 Range/Units Serum Glucose 144 H 74-106 mg/dL Microbiology Date/Time Source Procedure Growth Status 09/02/25 22:04 Nose MRSA Screen - Final Complete Problem List/Assessment/Plan Problem List/Assessment/Plan Assessment and plan Partially bed-bound Failure to thrive COPD exacerbation Acute respiratory failure due to above Possible Community-acquired pneumonia Gram-positive/Gram-negative Patient admitted to telemetry Currently on oxygen therapy with nasal cannula 2 L Under empiric IV antibiotic (azithromycin and ceftriaxone) Continue with oxygen therapy, bronchodilators, IV steroids and IV antibiotics. Ordered EKG Troponin x3 negative Essential Hypertension Target in hospital bp below 140/90 Continue home medications History of polysubstance abuse Not actively taking illicit drugs or substance abuse now Vitamin-D deficiency Supplement vitamin-D Dyslipidemia Continue home medications Follows with PCP on discharge Bipolar disorder Continue home medications Follow up with psychiatrist on discharge Goals of care full code Discussed plan with Dr. Vogt Plan discussed with: Patient My Orders My Orders Orders - GRACY COATS RESIDENT Procedure Category Date Status Time Complete Blood Count LAB 09/04/25 Verified 04:00 Comprehensive LAB 09/04/25 Verified Metabolic Panel 04:00 Date of Service: Sep 03, 2025 Billing Provider: YOSELYN LAL MD Common Visit Codes: [id number] INP/OBS CARE(HIGH) GRACY COATS RESIDENT Sep 03, 2025 19:51
[2025-09-03] MEDS: ATORVASTATIN 20 MG TAB PO SCH (22:28)
[2025-09-03] MEDS: MORPHINE SULFATE INJ 2 MG/ml SYRG IV PRN (22:31)
[2025-09-04] VITALS (16 sets, daily range): BP systolic 92–153; BP diastolic 65–94; PULSE 73–154; RESP 14–20; TEMP 97.7–98.7; O2SAT 93–100
[2025-09-04] MEDS: PROPRANOLOL HCL 20 MG TAB PO ONE (00:50)
[2025-09-04] MEDS ORDERED: RIS1T PO (02:18)
[2025-09-04] MEDS ORDERED: DIVA-139 PO (02:18)
[2025-09-04] MEDS ORDERED: IBUP-1454 PO (02:18)
[2025-09-04] MEDS ORDERED: DIPH25CA66 PO (02:18)
[2025-09-04] MEDS ORDERED: SERT-160 PO (02:18)
[2025-09-04 06:37] LABS: Hematocrit 38.4 % (36.0-46.0); Hemoglobin 12.5 g/dL (12.2-16.2); Mean Corpuscular Hemoglobin 28.1 pg (28.0-32.0); Mean Corpuscular Volume 86.5 fL (80.0-100.0); Nucleated Red Blood Cells % 0.0 %
[2025-09-04 06:51] LABS: Albumin 3.6 g/dL (3.2-4.8); Alkaline Phosphatase 51 U/L (46-116); Anion Gap 9 (5-15); BUN/Creatinine Ratio 18.6 (10.0-20.0); Blood Urea Nitrogen 11 mg/dL (9-23); Calcium 9.4 mg/dL (8.7-10.4); Chloride 99 mmol/L (98-107); Potassium 4.2 mmol/L (3.5-5.1); Sodium 139 mmol/L (136-145); Total Protein 6.7 g/dL (5.7-8.2)
[2025-09-04 06:52] LABS: Alanine Aminotransferase < 9 U/L (7-40); Bilirubin, Total 0.3 mg/dL (0.2-1.0); Carbon Dioxide 31 mmol/L (20-31); Glucose 115 mg/dL (74-106)
[2025-09-04] MEDS: PROPRANOLOL HCL 20 MG TAB PO SCH (08:54)
[2025-09-04] MEDS: IOHEXOL 350 MG/ML 100ML IJ ONE ×2 (09:30→12:53)
[2025-09-04 12:47] LABS: Base Excess 4.4 mmol/L (-2.0-3.0)
--- NOTE | 2025-09-04 13:47 | DVH ---
CLINICAL HISTORY: elevated d-dimer and sinus tachycardia TECHNIQUE: CT angiogram of the chest was performed with and without intravenous contrast. 3D reconstructed MIP images were created and archived on the PACS system under concurrent radiologist supervision. This exam was performed according to our departmental dose optimization program. Up-to-date CT equipment and radiation dose reduction techniques are utilized as appropriate. CTDI 25 DLP 736 COMPARISON: XY CHEST PORTABLE on DOS: 09/02/25, CT ANGIO CHEST - PULMONARY on DOS: 07/27/23, XR CHEST 1 VIEW on DOS: 05/31/23, CHEST PORTABLE on DOS: 02/18/21 FINDINGS: Chest: Evaluation for PE is limited due to breathing artifact. There was adequate opacification of the pulmonary artery tree. There is no filling defect to suggest acute pulmonary embolism. The thoracic aorta is normal in course and caliber. There are minimal aortic arch atherosclerotic calcifications. There is no aortic dissection. The heart is normal in size. No pericardial effusion is seen. No enlarged mediastinal, hilar, or axillary lymph node is present. The central airways are patent. There is no bronchiectasis. There is no suspicious pulmonary nodule or area of consolidation. There is minimal right middle and bilateral lower lobe atelectasis. There is no pleural effusion present. There is a small to moderate hiatal hernia containing the proximal stomach. Other: The visualized upper abdomen demonstrates left renal cysts. No acute osseous abnormality is identified. There are subtle old 3rd and 4th anterolateral rib fractures bilaterally. There is an old sternal fracture deformity. There are old mild T5, moderate T6, mild T8, and mild T9 vertebral body compression fractures. IMPRESSION: Limited exam with no evidence for acute pulmonary embolism. No aortic dissection. No pneumonia.
[2025-09-04] MEDS: risperiDONE 1 MG TAB PO SCH (15:45)
--- NOTE | 2025-09-04 15:47 | DVHPNRES ---
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 discussed on the treatment plants. ddimer elevated. CTPA -ve for PE. ABG on room air ordered. Mariana Jimenez is a 65-year-old female patient who presents to ED with chief complaint of desaturation. Per patient she does not use home oxygen. She was completely asymptomatic. She lives in an assisted living facility, or after of again seeing desaturation, caregivers called EMS who indicated oxygen therapy with nasal cannula and bring her to the emergency department. Patient denies any symptoms. Past medical history: Hypertension, COPD with no home oxygen requirement, bed- bound due to generalized weakness/failure to thrive Surgical history: Bilateral ankle surgery Family history: Intestinal cancer and grandmother and mother Social history: Lives in [place] in assisted living facility (next of kin is friend Karen). Ex tobacco abuse (40 pack-year history of smoking) quit approximately four years ago. Ex ethanol abuse (one pt of vodka daily) quit two years ago. Ex cocaine abuse quit over 20 years ago. Denies current tobacco, alcohol and other drug abuse. Allergies: Pollen and dust. Denies medication allergy. Home medication: Does not recall. Objective vital signs Vital Sign Date Time Temp Pulse Resp B/P (MAP) Pulse Ox O2 Delivery O2 Flow Rate FiO2 09/04/25 13:00 98.1 84 16 105/69 (81) 98 98.1 09/04/25 10:30 Nasal Cannula 2.0 09/04/25 10:30 28 Total Intake and Output 09/03/25 09/03/25 09/04/25 15:00 23:00 07:00 Intake Total 250 ml 500 ml Balance 250 ml 500 ml medications Current Medications Medications Dose Ordered Sig/Ji Route Start Time Stop Time Status Last Admin Dose Admin Acetaminophen 325 mg Q4HP PRN PO 09/02/25 15:45 Ondansetron HCl 4 mg Q4HP PRN IV 09/02/25 15:45 Morphine Sulfate 2 mg Q4HPRN PRN IV 09/02/25 15:45 09/04/25 08:56 2 MG Enoxaparin Sodium 40 mg DAILY SC 09/03/25 10:00 09/04/25 08:55 40 MG Ipratropium [place] 0.5 mg Q6HWA [facility] 09/02/25 18:00 09/04/25 12:35 0.5 MG Levalbuterol HCl 0.625 mg Q6HR NEB 09/02/25 18:00 09/04/25 12:35 0.625 MG Azithromycin 250 ml @ 125 mls/hr DAILY IV 09/03/25 10:00 09/04/25 08:53 125 MLS/HR Ergocalciferol 50,000 unit Q7D PO 09/03/25 10:00 09/03/25 12:16 50,000 UNIT Atorvastatin Calcium 40 mg HS PO 09/03/25 22:00 09/03/25 22:28 40 MG Propranolol HCl 40 mg BID PO 09/04/25 10:00 09/04/25 08:54 40 MG Divalproex Sodium 250 mg BID PO 09/04/25 10:00 Risperidone 1 mg BID PO 09/04/25 10:00 Examination Patient lying in bed, in no acute distress General: Lucid, afebrile, mucosae are moist Cardiovascular: Normal S1 and S2. No murmurs, gallops or rubs Respiratory: Normal ventilation mechanics. Clear lung sounds on auscultation. On nasal cannula 2 L/min. Abdomen: Soft, nontender, no organomegaly, normal bowel sounds MSK/skin: Mobilizes 4 limbs. Skin is dry and warm Neurological: Oriented in 3 spheres. No motor no sensitive deficits. Pupils are isocoric and reactive laboratory and microbiology Laboratory Tests 09/04/25 06:04 Test 09/04/25 06:04 Range/Units Serum Glucose 115 H 74-106 mg/dL Microbiology Date/Time Source Procedure Growth Status 09/02/25 22:04 Nose MRSA Screen - Final Complete Problem List/Assessment/Plan Problem List/Assessment/Plan Assessment and plan Partially bed-bound Failure to thrive COPD exacerbation Acute respiratory failure due to above Possible Community-acquired pneumonia Gram-positive/Gram-negative Patient admitted to telemetry Currently on oxygen therapy with nasal cannula 2 L Under empiric IV antibiotic (azithromycin and ceftriaxone) Continue with oxygen therapy, bronchodilators, IV steroids and IV antibiotics. Ordered EKG Troponin x3 negative ruled out PE d dimer elevtaed -ve DVT ultrasound -ve CTPA Essential Hypertension Target in hospital bp below 140/90 Continue home medications History of polysubstance abuse Not actively taking illicit drugs or substance abuse now Vitamin-D deficiency Supplement vitamin-D Dyslipidemia Continue home medications Follows with PCP on discharge Bipolar disorder Continue home medications Follow up with psychiatrist on discharge Goals of care full code Discussed plan with Dr. Vogt Plan discussed with: Patient My Orders My Orders Orders - GRACY COATS Procedure Category Date Status Time * Wound Consult CONS 09/04/[address] Tablet PHA 09/04/25 In Process (Depakote "Dr" Tabl 10:00 Risperidone Tablet PHA 09/04/25 In Process (Risperdal Tablet) 10:00 Abg W/ Co-Ox RT 09/04/25 Logged 08:36 Drug Screen LAB 09/04/25 Logged 11:31 Urinalysis LAB 09/04/25 Logged 11:42 Date of Service: Sep 04, 2025 Billing Provider: YOSELYN LAL MD Common Visit Codes: [id number] INP/OBS CARE(HIGH) GRACY COATS RESIDENT Sep 04, 2025 15:47
[2025-09-04] MEDS: PROPRANOLOL HCL 20 MG TAB ONE (15:50)
[2025-09-04 16:48] LABS: Urine Protein, UAD Negative (Negative)
[2025-09-04 16:56] LABS: Benzodiazephine Screen, Urine Neg (NEGATIVE)
[2025-09-04 16:57] LABS: Amphetamine Screen, Urine Neg (NEGATIVE); Barbiturate Scree,Urine Neg (NEGATIVE); Cannabinoid Screen, Urine Neg (NEGATIVE); Cocaine Screen, Urine Neg (NEGATIVE); Opiate Scree,Urine Neg (NEGATIVE); Phencyclidine Screen, Urine Neg (NEGATIVE)
[2025-09-05] VITALS (17 sets, daily range): BP systolic 90–114; BP diastolic 58–76; PULSE 70–88; RESP 16–20; TEMP 97.6–98.2; O2SAT 95–100
[2025-09-05 06:55] LABS: Hematocrit 36.4 % (36.0-46.0); Hemoglobin 12.2 g/dL (12.2-16.2); Mean Corpuscular Hemoglobin 28.9 pg (28.0-32.0); Mean Corpuscular Volume 86.4 fL (80.0-100.0); Nucleated Red Blood Cells % 0.2 %
[2025-09-05 07:17] LABS: Albumin 3.6 g/dL (3.2-4.8); Alkaline Phosphatase 51 U/L (46-116); Anion Gap 10 (5-15); BUN/Creatinine Ratio 18.2 (10.0-20.0); Blood Urea Nitrogen 12 mg/dL (9-23); Calcium 9.2 mg/dL (8.7-10.4); Carbon Dioxide 29 mmol/L (20-31); Chloride 100 mmol/L (98-107); Glucose 100 mg/dL (74-106); Potassium 3.7 mmol/L (3.5-5.1); Sodium 139 mmol/L (136-145); Total Protein 6.7 g/dL (5.7-8.2)
[2025-09-05 07:21] LABS: Alanine Aminotransferase < 9 U/L (7-40); Bilirubin, Total 0.3 mg/dL (0.2-1.0)
--- NOTE | 2025-09-05 14:50 | DVHDSRES ---
Discharge Summary Date of Admission Resident Creating Document: GRACY FATIMA RESIDENT Sep 02, 2025 at 15:35 Date of Discharge: Sep 05, 2025 Labs/Diagnostic Data: Laboratory Results Test 09/05/25 06:35 09/04/25 16:20 09/04/25 12:40 09/03/25 11:24 White Blood Count 6.7 10^3/uL (4.4-10.8) Red Blood Count 4.21 10^6/uL (4.0-5.20) Hemoglobin 12.2 g/dL (12.2-16.2) Hematocrit 36.4 % (36.0-46.0) Mean Corpuscular Volume 86.4 fL (80.0-100.0) Mean Corpuscular Hemoglobin 28.9 pg (28.0-32.0) Mean Corpuscular Hemoglobin Concent 33.4 g/dL (32.0-36.0) Red Cell Distribution Width 14.4 % (11.8-14.3) Platelet Count 196 10^3/uL (140-450) Mean Platelet Volume 7.4 fL (6.9-10.8) Neutrophils (%) (Auto) 54.8 % (37.0-80.0) Lymphocytes (%) (Auto) 24.8 % (10.0-50.0) Monocytes (%) (Auto) 16.7 % (0.0-12.0) Eosinophils (%) (Auto) 2.9 % (0.0-7.0) Basophils (%) (Auto) 0.8 % (0.0-2.0) Neutrophils # (Auto) 3.7 10 ^3/uL (1.6-8.6) Lymphocytes # (Auto) 1.7 10 ^3/uL (0.4-5.4) Monocytes # (Auto) 1.1 10 ^3/uL (0-1.3) Eosinophils # (Auto) 0.2 10 ^3/uL (0-0.8) Basophils # (Auto) 0.1 10 ^3/uL (0-0.2) Nucleated Red Blood Cells 0.2 % Sodium Level 139 mmol/L (136-145) Potassium Level 3.7 mmol/L (3.5-5.1) Chloride Level 100 mmol/L (98-107) Carbon Dioxide Level 29 mmol/L (20-31) Anion Gap 10 (5-15) Blood Urea Nitrogen 12 mg/dL (9-23) Creatinine 0.66 mg/dL (0.550-1.02) Glomerular Filtration Rate Calc 97 mL/min (>90) BUN/Creatinine Ratio 18.2 (10.0-20.0) Serum Glucose 100 mg/dL (74-106) Calcium Level 9.2 mg/dL (8.7-10.4) Total Bilirubin 0.3 mg/dL (0.2-1.0) Aspartate Amino Transferase (AST) 15 U/L (13-40) Alanine Aminotransferase (ALT) < 9 U/L (7-40) Alkaline Phosphatase 51 U/L (46-116) Total Protein 6.7 g/dL (5.7-8.2) Albumin 3.6 g/dL (3.2-4.8) Urine Color Colorless (Yellow) Urine Clarity Clear (Clear) Urine pH 7.5 (5.0-9.0) Urine Specific [place] 1.020 (1.001-1.035) Urine Protein Negative (Negative) Urine Ketones Negative (Negative) Urine Blood Negative /uL (Negative) Urine Nitrite Negative (Negative) Urine Bilirubin Negative (Negative) Urine Urobilinogen Normal mg/dL (Negative) Urine Leukocyte Esterase Negative /uL (Negative) Urine RBC 1 /hpf (0 - 4) Urine Microscopic WBC < 1 /HPF (0-5) Urine Squamous Epithelial Cells Few /hpf (<5) Urine Bacteria None seen /hpf (None Seen) Urine Glucose Normal mg/dL (Normal) Urine Opiates Screen Neg (NEGATIVE) Urine Fentanyl Screen Neg (NEGATIVE) Urine Barbiturates Screen Neg (NEGATIVE) Urine Phencyclidine Screen Neg (NEGATIVE) Urine Amphetamines Screen Neg (NEGATIVE) Urine Benzodiazepines Screen Neg (NEGATIVE) Urine Cocaine Screen Neg (NEGATIVE) Urine Cannabinoids Screen Neg (NEGATIVE) Blood Gas Specimen Type Arterial Blood Gas Sample Site Right radial Blood Gas Patient Temperature 37.0 Arterial Blood Date Drawn Arterial Blood pH 7.404 (7.350-7.450) Arterial Blood Partial Pressure CO2 49.2 mmHg (32.0-45.0) Arterial Blood Partial Pressure O2 54.1 mmHg (83.0-108.0) Arterial Blood HCO3 30.1 mmol/L (21.0-28.0) Arterial Blood Oxygen Saturation 85.7 % (94.0-98.0) Arterial Blood Base Excess 4.4 mmol/L (-2.0-3.0) Arterial Blood Oxyhemoglobin 84.7 % (94.0-98.0) Arterial Blood Carboxyhemoglobin 0.7 % (0.5-1.5) Arterial Blood Methemoglobin 0.5 % (0.0-1.5) Arterial Blood Deoxyhemoglobin 14.1 % (0.0-5.0) Chandra Test Yes Blood Gas Total Hemoglobin 12.90 g/dL (12.0-16.0) Blood Gas Modality Room air FiO2 % 21.0 Blood Gas Critical Value Read Back Yes. Blood Gas Notified Whom jacque Fatima md. Blood Gas Notified Time [id number] Blood Gas Notified By arianna Gerber rt. D-Dimer, Quantitative 4.28 mg/L FEU (0.0-0.49) Test 09/02/25 22:04 09/02/25 16:49 09/02/25 13:55 Influenza Type A Antigen Negative (Negative) Influenza Type B Antigen Negative (Negative) SARS-CoV-2 Antigen (Rapid) Negative (NEGATIVE) Troponin I High Sensitivity < 3 ng/L (</=34) Prothrombin Time 10.7 sec (9.3-11.8) Prothrombin Time INR 1.01 (0.9-1.15) Activated Partial Thromboplast Time 29.9 SEC (24.5-34.5) Hemoglobin A1c 5.2 % A1C (<5.7) Phosphorus Level 3.4 mg/dL (2.4-5.1) Magnesium Level 1.8 mg/dL (1.6-2.6) B-Type Natriuretic Peptide 30.10 pg/mL (0-100) Triglycerides Level 170 mg/dL (< 150) Cholesterol Level 221 mg/dL (< 200) LDL Cholesterol 150 mg/dL (< 100) HDL Cholesterol 52 mg/dL (40-59) Vitamin B12 Level 1449 pg/mL (211-911) Vitamin D 25-Hydroxy 24.0 ng/mL (30.0-100) Thyroid Stimulating Hormone (TSH) 2.55 uIU/mL (0.55-4.78) Other Laboratory Tests 09/05/25 06:35 Brief Hx & Hospital Course: Mariana Jimenez is a bed-bound 65-year-old female patient with past medical history of Hearing loss, COPD, hypertension, dyslipidemia, bipolar disorder who presented to ED with chief complaint of desaturation. Per patient she does not use home oxygen. She was completely asymptomatic. She lives in an assisted living facility, where her caregivers called EMS who indicated oxygen therapy with nasal cannula and bring her to the emergency department. D-dimer levels were elevated. CT pulmonary angiography and extremity venous study was negative for thrombi/ embolism. chest x-ray revealed mild pulmonary vascular congestion. Echo was normal. patient was tried to wean off oxygen in the hospital but began desaturating. She was weaned to 1 L oxygen and sent to the facility with home oxygen therapy, hospital bed and home safety evaluation. Discharge plan Follow up with PCP in 7 days Follow up with DC clinic in 7 days Continue home medication sent to assisted living facility with 1 L home oxygen and hospital bed To be assessed for home safety evaluation Condition at Discharge: Fair Final Diagnosis/Problems List acute hypoxic respiratory failure, due to below acute Community-acquired pneumonia Gram-positive/Gram-negative, possible acute COPD exacerbation, with pneumonitis Partially bed-bound, functional paraplegia Failure to thrive ruled out PE Essential Hypertension History of polysubstance abuse Vitamin-D deficiency Dyslipidemia Bipolar disorder Discharge Disposition: Assisted Living Facility Discharge Instruct/Medications Scheduled Diphenhydramine Hcl (Benadryl Allergy), 25 MG PO QHSP, (Reported) Divalproex Sodium (Depakote), 1 TAB PO BID, (Reported) Ibuprofen (Ibuprofen), 1 TAB PO Q4HP, (Reported) Risperidone (RisperDAL TABLET), 1 TAB PO BID, (Reported) Sertraline Hcl (Sertraline Hcl), 1 TAB PO DAILY, (Reported) Discharge Statement: "Patient was advised to return to the ER or call 911 if any headaches, dizziness, shortness of breath, chest pain, abdominal pain, bleeding, fevers, or worsening of medical condition. Patient was counseled about treatment plan, medications, possible side effects, patientverbalized understanding. All questions were answered to the best of my ability. This discharge took greater then 30 minutes in planning, reviewing documentation, counseling the patient, and discussing with other team members." DME: Diagnosis: Bed bound COPD eacerbation, home oxygen required ASSESSMENT ASSESSMENT Assessment Date of Service: Sep 05, 2025 Billing Provider: YOSELYN LAL MD Common Visit Codes: [id number] DISCH DAY >30min GRACY FATIMA RESIDENT Sep 05, 2025 14:50 YOSELYN LAL MD Sep 07, 2025 10:48
--- NOTE | 2025-09-05 17:50 | ECG ---
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
[2025-09-05] MEDS: ACETAMINOPHEN 325 MG TAB PO PRN (20:58)
[2025-09-05] MEDS: HYDROcodone-ACET 5/325MG TAB ONE (22:19)
[2025-09-05] MEDS: HYDROcodone-ACET 5/325MG TAB PO ONE (22:23)
[2025-09-06] VITALS (19 sets, daily range): BP systolic 95–110; BP diastolic 65–73; PULSE 62–85; RESP 12–20; TEMP 97.7–98.4; O2SAT 96–100
--- NOTE | 2025-09-06 13:51 | DVHPNRES ---
Progress Note Date Seen: Sep 06, 2025 Resident Creating Document: BINTA BURKETT RESDIENT Medical Necessity Reason Pt with a Central, PICC or Fol: No Subjective Review of Systems Mariana Jimenez is a 65-year-old female patient who presents to ED with chief complaint of desaturation. Per patient she does not use home oxygen. She was completely asymptomatic. She lives in an assisted living facility, or after of again seeing desaturation, caregivers called EMS who indicated oxygen therapy with nasal cannula and bring her to the emergency department. Patient denies any symptoms. 08/27, the patient seen and examined at bedside. Patient is feeling better and does not have any active complaint. Objective vital signs Vital Sign Date Time Temp Pulse Resp B/P (MAP) Pulse Ox O2 Delivery O2 Flow Rate FiO2 09/06/25 12:46 97.9 70 18 109/65 (80) 96 97.9 09/06/25 08:17 Nasal Cannula* 2 28 Total Intake and Output 09/05/25 09/05/25 09/06/25 15:00 23:00 07:00 Intake Total 250 ml 800 ml 600 ml Balance 250 ml 800 ml 600 ml medications Current Medications Medications Dose Ordered Sig/Ji Route Start Time Stop Time Status Last Admin Dose Admin Acetaminophen 325 mg Q4HP PRN PO 09/02/25 15:45 Ondansetron HCl 4 mg Q4HP PRN IV 09/02/25 15:45 Morphine Sulfate 2 mg Q4HPRN PRN IV 09/02/25 15:45 09/04/25 08:56 2 MG Enoxaparin Sodium 40 mg DAILY SC 09/03/25 10:00 09/06/25 11:01 40 MG Ipratropium [place] 0.5 mg Q6HWA [facility] 09/02/25 18:00 09/06/25 08:14 0.5 MG Levalbuterol HCl 0.625 mg Q6HR NEB 09/02/25 18:00 09/06/25 08:13 0.625 MG Azithromycin 250 ml @ 125 mls/hr DAILY IV 09/03/25 10:00 09/06/25 10:00 125 MLS/HR Ergocalciferol 50,000 unit Q7D PO 09/03/25 10:00 09/03/25 12:16 50,000 UNIT Atorvastatin Calcium 40 mg HS PO 09/03/25 22:00 09/05/25 22:23 40 MG Propranolol HCl 40 mg BID PO 09/04/25 10:00 09/05/25 22:22 40 MG Divalproex Sodium 250 mg BID PO 09/04/25 10:00 09/06/25 11:00 250 MG Risperidone 1 mg BID PO 09/04/25 10:00 09/06/25 11:00 1 MG Examination General: Lucid, afebrile, mucosae are moist Cardiovascular: Normal S1 and S2. No murmurs, gallops or rubs Respiratory: Normal ventilation mechanics. Clear lung sounds on auscultation. On nasal cannula 2 L/min. Abdomen: Soft, nontender, no organomegaly, normal bowel sounds MSK/skin: Mobilizes 4 limbs. Skin is dry and warm Neurological: Oriented in 3 spheres. No motor no sensitive deficits. Pupils are isocoric and reactive laboratory and microbiology Laboratory Tests 09/05/25 06:35 Test 09/05/25 06:35 Range/Units Serum Glucose 100 74-106 mg/dL Microbiology Date/Time Source Procedure Growth Status 09/02/25 22:04 Nose MRSA Screen - Final Complete Labs and/or images reviewed: Labs reviewed by me, Image(s) reviewed by me Problem List/Assessment/Plan Problem List/Assessment/Plan Partially bed-bound Failure to thrive COPD exacerbation Acute respiratory failure due to above Possible Community-acquired pneumonia Gram-positive/Gram-negative Patient admitted to telemetry Currently on oxygen therapy with nasal cannula 2 L Under empiric IV antibiotic (azithromycin and ceftriaxone) Continue with oxygen therapy, bronchodilators, IV steroids and IV antibiotics. Ordered EKG Troponin x3 negative ruled out PE d dimer elevtaed -ve DVT ultrasound -ve CTPA Essential Hypertension Target in hospital bp below 140/90 Continue home medications History of polysubstance abuse Not actively taking illicit drugs or substance abuse now Vitamin-D deficiency Supplement vitamin-D Dyslipidemia Continue home medications Follows with PCP on discharge Bipolar disorder Continue home medications Follow up with psychiatrist on discharge Goals of care full code Discussed plan with Dr. Vogt Plan discussed with: Patient, Other (RN) My Orders My Orders Orders - BINTA BURKETT RESDIKATHIA Procedure Category Date Status Time Pt Request For Service PT 09/06/25 Logged 12:04 Date of Service: Sep 06, 2025 Billing Provider: YOSELYN LAL MD Common Visit Codes: [id number] INP/OBS CARE(HIGH) BINTA BUKRETT RESGÉNESIS Sep 06, 2025 13:51
[2025-09-07] VITALS (19 sets, daily range): BP systolic 96–110; BP diastolic 55–76; PULSE 70–87; RESP 14–18; TEMP 97.6–98.8; O2SAT 94–99
[2025-09-07 06:56] LABS: Hematocrit 33.4 % (36.0-46.0); Hemoglobin 10.8 g/dL (12.2-16.2); Mean Corpuscular Hemoglobin 28.3 pg (28.0-32.0); Mean Corpuscular Volume 87.5 fL (80.0-100.0); Nucleated Red Blood Cells % 0.1 %
[2025-09-07 07:00] LABS: Anion Gap 9 (5-15); BUN/Creatinine Ratio 30.4 (10.0-20.0); Blood Urea Nitrogen 14 mg/dL (9-23); Calcium 8.7 mg/dL (8.7-10.4); Chloride 103 mmol/L (98-107); Glucose 87 mg/dL (74-106); Potassium 3.9 mmol/L (3.5-5.1); Sodium 144 mmol/L (136-145); Total Protein 5.8 g/dL (5.7-8.2)
[2025-09-07 07:01] LABS: Alanine Aminotransferase < 9 U/L (7-40); Albumin 3.1 g/dL (3.2-4.8); Alkaline Phosphatase 42 U/L (46-116); Bilirubin, Total 0.2 mg/dL (0.2-1.0); Carbon Dioxide 32 mmol/L (20-31)
[2025-09-08] VITALS (13 sets, daily range): BP systolic 95–106; BP diastolic 62–71; PULSE 68–85; RESP 16–18; TEMP 97.6–98.3; O2SAT 96–100
== END 2025-09-08 16:16 | disposition home health service (06) | DRG 177 ==
LOC: EDBD 13:42 → ER 13:42 → OVERFLOW 15:35 → TELE-EAST 09-03 18:41
PROVIDERS: ADMIT Student in an Organized Health Care Education/Training Program; ATTEND Student in an Organized Health Care Education/Training Program
DX: J15.69 Pneumonia due to other Gram-negative bacteria (principal); J96.21 Acute and chronic respiratory failure with hypoxia; R53.2 Functional quadriplegia; R62.7 Adult failure to thrive; J44.0 Chronic obstructive pulmonary disease with (acute) lower respiratory infection; J15.9 Unspecified bacterial pneumonia; F31.9 Bipolar disorder, unspecified; I10 Essential (primary) hypertension; J44.1 Chronic obstructive pulmonary disease with (acute) exacerbation; Z20.822 Contact with and (suspected) exposure to COVID-19; E55.9 Vitamin D deficiency, unspecified; E78.5 Hyperlipidemia, unspecified; Z74.01 Bed confinement status; Z80.0 Family history of malignant neoplasm of digestive organs; Z87.891 Personal history of nicotine dependence; Z68.29 Body mass index [BMI] 29.0-29.9, adult
CPT/HCPCS: 36415; 36600; 71045; 71275; 80048; 80053; 80061; 80307; 81001; 82306; 82607; 82805; 83036; 83735; 83880; 84100; 84443; 84484; 85025; 85379; 85610; 85730; 87081; 87426; 87804; 93005; 93306; 93970; 94640; 97163; G0378